=== PATIENT | male | born 1995 | race Caucasian/White ===

== ENCOUNTER 2017-01-18 22:15 | Emergency (ER) ==
[2017-01-18 22:26] VITALS: BP 153/82; BMI 29.7
[2017-01-18] MEDS ORDERED: MOTRIN PO STA (22:30)
[2017-01-18] MEDS ORDERED: LIDOCAINE HCL 1% SDV SUBCUT STA (22:35)
[2017-01-18] MEDS ORDERED: ROCEPHIN IM STA (22:35)
--- NOTE | 2017-01-18 22:37 | ED.PDOC ---
General ED Provider: Dr. ALEISHA BATEMAN Chief Complaint: Fever Stated Complaint: one day history of fever, thorat T max 105 at home. Time Seen by Physician: 22:35 Mode of Arrival: Walk-In Information Source: Patient Exam Limitations: No limitations Nursing and Triage Documentation Reviewed and Agree: Yes EENT Complaint Exam - Throat Complaint/Exam Onset/Duration: 2 days Symptoms Are: Still present Timimg: Constant Initial Severity: Moderate Current Severity: Moderate Alleviating: Reports: Antipyretics Associated Signs and Symptoms: Reports: Fever, Dysphagia Uvula Midline: Yes Arabella-tonsillar Fluctuence: Yes Scarlatinaform Rash Present: No Lesions: Absent: Lip, Gums, Tongue, Buccal Mucosa, Pharynx Exanthem: Absent: Lip, Gums, Tongue, Buccal Mucosa, Pharynx Vesicles: Absent: Lip, Gums, Tongue, Buccal Mucosa, Pharynx Stridor Present: No Sinus Tenderness Present: Yes Tonsillar Hypertrophy Present: Yes Tonsillar Exudate Present: Yes Arabella-tonsillar Swelling Present: No Adenopathy Present: Yes Splenomegaly Present: No Differential Diagnoses: Pharyngitis, Tonsillitis Review of Systems - Review Of Systems Constitutional: Reports: Chills, Fever, Loss of appetite Eyes: Reports: No symptoms Ears, Nose, Mouth, Throat: Reports: Mouth pain, Throat pain Respiratory: Reports: No symptoms Cardiac: Reports: No symptoms GI: Reports: No symptoms : Reports: No symptoms Musculoskeletal: Reports: No symptoms Skin: Reports: No symptoms Neurological: Reports: No symptoms Endocrine: Reports: No symptoms Hematologic/Lymphatic: Reports: No symptoms All Other Systems: Reviewed and Negative Past Medical History - Past Medical History Previously Healthy: Yes Endocrine: Reports: None Cardiovascular: Reports: None Respiratory: Reports: None Hematological: Reports: None Gastrointestinal: Reports: None Genitourinary: Reports: None Neuro/Psych: Reports: None Musculoskeletal: Reports: None Cancer: Reports: None Other Pertinent Past Medical History: Strep Throat. - Surgical History General Surgical History: Reports: None - Family History Family History: Reports: None - Social History Smoking Status: Never smoker Hx Substance Use: No Alcohol Screening: Occasionally - Immunizations Tetanus Shot up to Date: Yes Physical Exam - Physical Exam Appearance: Well-appearing, No pain distress, Well-nourished Eyes: KIMBERLY, EOMI, Conjunctiva clear ENT: Ears normal, Nose normal, Erythema Neck: Supple Respiratory: Airway patent, Breath sounds clear, Breath sounds equal, Respirations nonlabored Cardiovascular: RRR, Pulses normal, No rub, No murmur GI/: Soft, Nontender, No masses, Bowel sounds normal, No Organomegaly Musculoskeletal: Normal strength, ROM intact, No edema, No calf tenderness Skin: Warm, Dry, Normal color Neurological: Sensation intact, Motor intact, Reflexes intact, Cranial nerves intact, Alert, Oriented Psychiatric: Anxious Critical Care Note - Critical Care Note Total Time (mins): 0 Course - Course Orders, Labs, Meds: Orders Category Date Time Status RAPID FLU A/B Stat LAB 01/18/17 22:30 Uncollected STREP SCREEN Stat LAB 01/18/17 22:30 Uncollected Ceftriaxone Sodium [Rocephin] MEDS 01/18/17 22:35 Stat 1 gm IM ONCE STA Ibuprofen [Motrin] MEDS 01/18/17 22:30 Stat 600 mg PO ONCE STA Lidocaine HCl/Pf [Lidocaine HCl 1% Sdv] MEDS 01/18/17 22:35 Stat 5 ml SUBCUT ONCE STA Medications Discontinued Medications Generic Name Dose Route Start Last Admin Trade Name Freq PRN Reason Stop Dose Admin Ibuprofen 600 mg 01/18/17 22:30 Motrin PO 01/18/17 22:31 ONCE STA Vital Signs: Temp Pulse Resp BP Pulse Ox 01/18/17 22:17 99.8 F H 91 H 20 153/82 H 99 Departure - Departure Time of Disposition: 23:18 Disposition: HOME SELF-CARE Discharge Problem: Pharyngitis Qualifiers: Pharyngitis/tonsillitis etiology: streptococcus Qualified Code(s): J02.0 - Streptococcal pharyngitis Instructions: Pharyngitis (ED) Condition: Fair Pt referred to PMD for follow-up: Yes Additional Instructions: Take medications as prescribed Follow up wth PCP in 3-5 days Alternate Tylenol with Motrin as needed for fever. Prescriptions: Amoxicillin [Amoxil] 500 mg PO TID #30 capsule Ibuprofen [Motrin] 600 mg PO Q6H PRN #30 tablet PRN Reason: Analgesia Allergies/Adverse Reactions: Allergies No Known Allergies Allergy (Unverified 01/18/17 22:24) Home Medications: Ambulatory Orders Amoxicillin [Amoxil] 500 mg PO TID #30 capsule 01/18/17 Ibuprofen [Motrin] 600 mg PO Q6H PRN #30 tablet 01/18/17 Disposition Discussed With: Patient, Family
[2017-01-18 23:14] LABS: FLU INTERNAL QC INTERNAL QC VALID; RAPID FLU A NEGATIVE (NEGATIVE); RAPID FLU B NEGATIVE (NEGATIVE)
[2017-01-18 23:37] VITALS: TEMP 99.1
== END 2017-01-18 23:30 | disposition home or self-care (01) ==
LOC: ED 22:15
DX: J02.0 Streptococcal pharyngitis (principal)
CPT/HCPCS: 87651; 87804; 87880; 96372; 99283